=== PATIENT | female | born 1970 | race Two or more races ===

== ENCOUNTER → 2017-06-23 | Outpatient (CLI) | payer MEDICAID | LOC: BRMIMAGING 14:16 | PROVIDERS: ATTEND Registered Nurse | DX: Z12.31 Encounter for screening mammogram for malignant neoplasm of breast (principal) ==

== ENCOUNTER → 2017-07-03 | Outpatient (CLI) | payer MEDICAID | LOC: BRMIMAGING 09:32 | PROVIDERS: ATTEND Registered Nurse | DX: R92.8 Other abnormal and inconclusive findings on diagnostic imaging of breast (principal) | CPT/HCPCS: 76641-PO ==